=== PATIENT | female | born 1995 | race African-American/Black ===

== ENCOUNTER 2021-02-22 19:49 | Emergency (ER) | payer OTHER, MEDICAID ==
[~2021-02-22] VITALS: Ht 165.1 cm; Wt 69.0 kg
[2021-02-22 19:56] VITALS: BP 110/86
[2021-02-22] MEDS ORDERED: ONDANSETRON 4MG ODT PO ONE (20:45)
[2021-02-22] MEDS ORDERED: TETRACAINE 0.5% OPHTH DROPS 4ML RIGHTEYE ONE (20:45)
[2021-02-22] MEDS ORDERED: CEFTRIAXONE SODIUM 500 MG/VIAL IM ONE (20:45)
[2021-02-22] MEDS ORDERED: DOXYCYCLINE HYCLATE 100MG CAPSULE PO ONE (20:45)
[2021-02-22] MEDS ORDERED: FLUORESCEIN SODIUM 1MG/STRIP RIGHTEYE ONE (20:45)
[2021-02-22 22:11] LABS: CLARITY URINE CLEAR (CLEAR); COLOR URINE YELLOW (YELLOW); KETONES URINE 4+ (NEGATIVE); LEUKOCYTE ESTERASE URINE 1+ (NEGATIVE); NITRITE URINE NEGATIVE (NEGATIVE); OCCULT BLOOD URINE NEGATIVE (NEGATIVE); PROTEIN URINE 1+ (NEGATIVE); SPECIFIC GRAVITY URINE 1.035 (1.005-1.030)
[2021-02-25 09:11] LABS: NEISSERIA GONORRHOEAE NAA Negative (Negative)
== END 2021-02-22 23:05 | disposition home or self-care (01) ==
LOC: ER 19:49
DX: U07.1 COVID-19 (principal); S05.8X1A Other injuries of right eye and orbit, initial encounter; Z20.2 Contact with and (suspected) exposure to infections with a predominantly sexual mode of transmission; Z90.49 Acquired absence of other specified parts of digestive tract; Y08.89XA Assault by other specified means, initial encounter; Y93.89 Activity, other specified; Y92.89 Other specified places as the place of occurrence of the external cause
CPT/HCPCS: 81003; 81025; 87491; 87529; 87591; 96372; 99283; C9803; J0696; Q0162; U0003; U0005